=== PATIENT | male | born 1975 | race Caucasian/White ===

== ENCOUNTER 2018-05-26 13:26 | Emergency (ER) | payer BC ==
[~2018-05-26] VITALS: Ht 180.3 cm; Wt 122.7 kg
[~2018-05-26 13:26] MED LIST: ALLERGY INJECTIONS INJ; PERCOCET 10/3251 TA1 PO; PRILOSEC20 MG PO; SINGULAIR10 MG PO
[2018-05-26 13:37] VITALS: Ht 180.3 cm; Wt 122.7 kg
[2018-05-26] MEDS ORDERED: CLARITIN 10 MG10 MG PO (13:41)
[2018-05-26] MEDS ORDERED: PRISTIQ50 MG PO (13:42)
[2018-05-26 14:24] LABS: ALBUMIN 3.4 g/dL (3.4-5.0); ANION GAP 10.4 mmol/L (8-16); BILIRUBIN - TOTAL 0.4 mg/dL (0.2-1.3); CALCIUM 8.7 mg/dL (8.5-10.1); CARBON DIOXIDE 26.3 mmol/L (21.0-32.0); CREATININE - SERUM 1.4 mg/dL (0.6-1.3); POTASSIUM - SERUM 3.7 mmol/L (3.5-5.1); PROTEIN - SERUM 6.3 g/dL (6.4-8.2)
[2018-05-26 14:42] LABS: HEMATOCRIT 39.7 % (42.0-54.0); HEMOGLOBIN 13.9 g/dL (13.5-17.5); LYMPHOCYTES 17.1 % (15-50); MCH 31.3 pg (26.0-34.0); MCV 89.4 fL (80.0-100.0); MEAN PLATELET VOLUME 9.9 fL (7.4-10.4); NEUTROPHILS 74.6 % (40-80); PLATELET COUNT 181 10x3/uL (130-400); RBC 4.44 10x6/uL (4.20-6.10); RDW 12.4 % (11.5-14.5); WBC 7.7 10x3/uL (4.8-10.8)
[2018-05-26] MEDS ORDERED: FLOMAX0.4 MG PO (15:46)
[2018-05-26] MEDS ORDERED: HYDROCODONE-APA1 TAB PO (15:46)
[2018-05-26] MEDS ORDERED: LEVAQUIN750 MG PO (15:47)
[2018-05-26 15:54] LABS: APPEARANCE HAZY (CLEAR); BILIRUBIN NEGATIVE (NEGATIVE); COLOR DK YELLOW (YELLOW); GLUCOSE NEGATIVE (NEGATIVE); KETONE NEGATIVE (NEGATIVE); NITRITE NEGATIVE (NEGATIVE); PROTEIN TRACE mg/dL (NEGATIVE); UROBILINOGEN NORMAL (NORMAL)
[2018-05-26 16:00] LABS: BACTERIA FEW /hpf (NONE SEEN); EPITHELIAL CELLS OCC /hpf (0-5); MUCUS <1+ /lpf (NONE SEEN); RED CELLS - URINE RARE /hpf (0-5); SPERMATOZOA 0-5 /hpf (NONE SEEN); WHITE CELLS - URINE OCC /hpf (0-5)
[2018-05-26 16:01] LABS: AMORPHOUS SEDIMENT <1+ /lpf (NONE SEEN); CALCIUM OXALATE CRYSTALS 0-5 /hpf (NONE SEEN)
[2018-05-26 17:44] VITALS: BP 117/80
== END 2018-05-26 17:47 | disposition home or self-care (01) ==
LOC: D.ER 13:26
PROVIDERS: Emergency Medicine
DX: N20.1 Calculus of ureter (principal); N23 Unspecified renal colic; R31.9 Hematuria, unspecified; R11.2 Nausea with vomiting, unspecified; F17.200 Nicotine dependence, unspecified, uncomplicated

== ENCOUNTER 2019-03-17 12:15 | Outpatient (CLI) | payer BC ==
[~2019-03-17] VITALS: Ht 180.3 cm; Wt 120.5 kg
--- NOTE | ~2019-03-17 | HEMODYNAMI ---
PATIENT:OSWALDO ECHOLS JR MEDICAL RECORD: [id number] : 75 LOCATION:[facility] ADMISSION DATE: 03/17/19 Generatedon:03/17/201915:02 Patient name: OSWALDO ECHOLS Patient #: [id number] SSN: : [id number] Date of study: 03/17/2019 Page: Of Hemodynamic Procedure Report Patient Data Patient Demographics Procedure consent was obtained First Name: OSWALDO Gender: Male Last Name: ONESIMO Suffix: [facility] Initial: BRENDEN : 1975 Patient #: [id number] Age: 43 year(s) Race: Unknown Additional ID: [id number] Contact details [address]: [address] [place] [address] State: [place] City: [place] Zip code: [address] Admission Admission Data Admission Date: 03/17/2019 Admission Time: 12:15 Height (in.): 71 BSA: 2.38 (m2) Height (cm.): 180.34 BMI: 37.04 (kg/m2) Weight (lbs.): 265.55 Weight (kg.): 120.45 Lab Results Lab Result Date: 03/17/2019 Lab Result Time: 0:00 Biochemistry Name Units Result Min Max BUN mg/dl 13 --(--*-)-- 7 18 Creatinine mg/dl 1 --(--*-)-- 0.6 1.3 CBC Name Units Result Min Max Hemoglobin g/dl 15.3 --(-*--)-- 13.5 17.5 Procedure Procedure Types Cath Procedure Diagnostic Procedure LHC LHC w/Coronaries Procedure Description Procedure Date Procedure Date: 03/17/2019 Procedure Start Time: 14:50 Procedure End Time: 15:01 Procedure Staff Name Function Terrence Rawls MD Performing Physician Veronica Fernandez RT Monitor Aaliyah Stoll RN Nurse Tashia Velazquez RT Scrub Procedure Data Cath Procedure Fluoroscopy Diagnostic fluoroscopy Total fluoroscopy Time: 3.2 time: 3.2 min min Contrast Material Contrast Material Type Amount (ml) Isovue 370 37 Entry Location Entry Primary Successful Side Size Upsize Upsize Entry Closure Fernandez ccessful Closure Location (Fr) 1 (Fr) 2 (Fr) Remarks Device Remarks Radial Right 6 Fr Mechanical artery Short Compression Estimated blood loss: 5 ml Diagnostic catheters Device Type Used For End Catheter Placement DIAGNOSTIC Anthony 110cm 5 Multi-vessel Fr catheter ([id number]) Angiography DIAGNOSTIC Pigtail 5Fr LV Angiography catheter ([id number]) Procedure Complications No complications Procedure Medications Medication Administration Route Dosage 0.9% NaCl I.V. 100 ml/hr Oxygen etCO2 Nasal cannula 2 l/min Lidocaine 2% added to field 20 Heparin Flush Bag added to field 2 bags (1000units/500ml NS) Radial Cocktail added to field 1 syringe (Verapamil 2mg/Nitro 400mcg/Heparin 1500units) Versed I.V. 2 mg Fentanyl I.V. 50 mcg Versed I.V. 2 mg Fentanyl I.V. 50 mcg Hemodynamics Rest BSA: 2.38 (m2) HGB: 15.3 (g/dl) O2 Consumption: Estimated: 285.91 (ml/min) O2 Co nsumption indexed: Estimated:120.13 (ml/min/m) Heart Rate: 67 (bpm) Pressure Samples Time Site Value (mmHg) Purpose Heart Use Rate(bpm) 14:53 LV 107/12,13 Snapshot 75 14:53 AO 123/88(106) Pullback 71 14:53 LV 114/8,11 Pullback 71 14:57 LV 92/4,9 Snapshot 65 Gradients Valve Time Site 1 Site 2 Mean SEP/DFP Peak To Heart Use (mmHg) (sec/min) Peak Rate (mmHg) (bpm) Aortic 14:53 LV AO 0 71 114/8,11 123/88(106) Calculations Valve P-P Mean Valve Index Valve Source Name Gradient Area Flow (cm2) Aortic 0 0 Snapshots Pre Cath Intra NCS Post Cath Vital Signs Time Heart Resp SPO2 etCO2 NIBP (mmHg) Rhythm Pain Sedation Rate (ipm) (%) (mmHg) Status Level (bpm) 14:31:55 69 17 97 36.9 169/110(132) NSR 0 (11) 10(A) , No pain 14:36:29 72 18 98 39.8 160/116(134) NSR 0 (11) 10(A) , No pain 14:41:00 69 16 98 42.1 161/109(125) NSR 0 (11) 10(A) , No pain 14:45:24 67 16 97 39.8 157/100(125) NSR 0 (11) 9(A) , No pain 14:49:40 70 13 98 46.7 149/103(123) NSR 0 (11) 9(A) , No pain 14:54:04 70 13 97 40.6 150/86(105) NSR 0 (11) 9(A) , No pain 14:58:30 65 14 98 45.1 140/81(111) NSR 0 (11) 10(A) , No pain Medications Time Medication Route Dose Verified Delivered Reason Notes E ffectiveness by by 14:33:02 0.9% NaCl I.V. 100 Terrence Videsa used for ml/hr [facility] procedure MD MINA 14:33:09 Oxygen etCO2 2 l/min Terrence Videsa used for Nasal [facility] procedure cannula MD MINA 14:33:15 Lidocaine 2% added 20ml Terrence Ocampo for local to vial [facility] anesthetic field MD PHELPS 14:33:20 Heparin Flush added 2 bags Terrence Ocampo used for Bag to [facility] procedure (1000units/500ml field MD PHELPS NS) 14:33:26 Radial Cocktail added 1 Terrence Ocampo used for (Verapamil to syringe [facility] procedure 2mg/Nitro field MD PHELPS 400mcg/Heparin 1500units) 14:39:13 Versed I.V. 2 mg Terrence Aaliyah for SinaiT[facility] Stoll sedation MD MINA 14:39:19 Fentanyl I.V. 50 mcg Terrence Charlesyla for SinaiT[facility] Stoll sedation MD MINA 14:44:05 Versed I.V. 2 mg Terrence Aaliyah for SinaiTai Stoll sedation MD MINA 14:44:15 Fentanyl I.V. 50 mcg Terrence Videsa for SinaiTai Stoll sedation MD MINAsoftware build engineer Log Time Note 13:56:06 Patient Height : 71 inches 13:56:12 Patient Weight : 265.55 lbs 13:56:35 Lab Result : Hemoglobin 15.3 g/dl 13:56:35 Lab Result : Creatinine 1 mg/dl 13:56:35 Lab Result : BUN 13 mg/dl 13:57:04 Diagnostic Cath status Elective 13:57:06 Veronica Fernandez RT(R) sent for patient. Start room use. 13:57:08 Time tracking: Regular hours (M-F 7:00 - 5:00) 13:57:12 Plan of Care:Hemodynamics will remain stable., Cardiac rhythm will remain stable., Comfort level will be maintained., Respiratory function will remain adequate., Patient/ family verbilizes understanding of procedure., Procedure tolerated without complication., Recovers from procedure without complications.. 14:25:03 Patient received from Pre/Post Procedure Room to CCL 2 Alert and oriented. Tansferred to table in Supine position. 14:25:05 Warm blankets applied, and klaudia hugger turned on for patient comfort. 14:25:05 Correct patient and procedure confirmed by team. 14:25:06 Signed procedure consent form obtained from patient. 14:25:07 ECG and BP/O2 sat monitors applied to patient. 14:30:31 Vital chart was started 14:33:02 0.9% NaCl 100 ml/hr I.V. was administered by Aaliyah Stoll RN; used for procedure; 14:33:09 Oxygen 2 l/min etCO2 Nasal cannula was administered by Aaliyah Stoll RN; used for procedure; 14:33:15 Lidocaine 2% 20ml vial added to field was administered by Terrence Rawls MD; for local anesthetic; 14:33:20 Heparin Flush Bag (1000units/500ml NS) 2 bags added to field was administered by Terrence Rawls MD; used for procedure; 14:33:24 Baseline sample Acquired. 14:33:26 Radial Cocktail (Verapamil 2mg/Nitro 400mcg/Heparin 1500units) 1 syringe added to field was administered by Terrence Rawls MD; used for procedure; 14:33:28 Rhythm: sinus rhythm 14:33:30 Full Disclosure recording started 14:33:33 H&P Date Dictated: 03/17/2019 Within 30 days and on chart., H&P Addendum completed by physician on day of procedure. (MUST COMPLETE FOR ALL OUTPATIENTS). 14:33:34 Pre-procedure instructions explained to patient. 14:33:35 Pre-op teaching completed and patient verbalized understanding. 14:33:36 Family in waiting room. 14:33:38 Patient NPO since Midnight. 14:33:39 Is the patient allergic to Iodine/contrast media? No. 14:33:40 Was the patient premedicated? No 14:33:41 Is patient on blood thinner?No 14:33:42 Patient diabetic? No. 14:33:45 Previous problem with sedation/anesthesia? No ? 14:33:47 Snore? Yes 14:33:47 Sleep apnea? No 14:33:48 Deviated septum? No 14:33:49 Opens mouth fully? Yes 14:33:51 Sticks out tongue? Yes 14:33:57 Airway obstruction? Yes asthma 14:34:00 Dentures? No ? 14:34:03 Pre procedure: right dorsailis pedis pulse 2+ Normal; easily identifiable; not easily obliterated 14:34:06 Pre procedure: left dorsailis pedis pulse 2+ Normal; easily identifiable; not easily obliterated 14:34:07 Patient pain scale 0/10 ?. 14:34:15 IV patent on arrival in left forearm with 0.9% NaCl at O. 14:34:17 Lab results completed and on chart. 14:34:22 Right Radial & Right Groin area was prepped with chlora-prep and draped in sterile fashion 14:34:23 Alarms reviewed by R. N. 14:34:23 Sharps counted by scrub and verified by R.N. 14:38:06 Physician arrived 14:38:06 --------ALL STOP TIME OUT------ 14:38:06 Final Timeout: patient, procedure, and site verified with staff and physician. All members of the team are in agreement. 14:38:09 Right Radial & Right Groin site verified by team. 14:38:12 Maximum allowable Isovue 300 dose 300ml. Physician notified. (300ml for normal creatinines. For patients with creatinine of 1.7 or higher multiply weight(kg) x 5 divided by creatinine.) 14:38:16 Fire Safety Assessment: A--An alcohol-based skin anteseptic being used preoperatively., C--Open oxygen or nitrous oxide is being used., D--An ESU, laser, or fiber-optic light is being used. 14:38:19 Physical assessment completed. ASA score P 2 - A patient with mild systemic disease as per Terrence Rawls MD. 14:38:22 Sedation plan: IV Moderate Sedation Medication:Versed, Fentanyl 14:38:28 Use device set Radial Dx or PCI 14:38:29 ACIST Syringe (12119) opened to sterile field. 14:38:29 Medline Cath Pack ([id number]) opened to sterile field. 14:38:29 Bag Decanter (2002S) opened to sterile field. 14:38:30 DIAGNOSTIC WIRE .035 260cm J wire (120011) opened to sterile field. 14:38:30 ACIST Hand Control (40347) opened to sterile field. 14:38:30 ACIST Manifold (54830) opened to sterile field. 14:38:31 Tegaderm 4 x 4 (1626W) opened to sterile field. 14:38:31 MBrace Wrist Support ([id number]) opened to sterile field. 14:38:32 SHEATH 6FR Slender (51-6453) opened to sterile field. 14:39:13 Versed 2 mg I.V. was administered by Aaliyah Stoll RN; for sedation; 14:39:19 Fentanyl 50 mcg I.V. was administered by Aaliyah Stoll RN; for sedation; 14:44:05 Versed 2 mg I.V. was administered by Aaliyah Stoll RN; for sedation; 14:44:15 Fentanyl 50 mcg I.V. was administered by Aaliyah Stoll RN; for sedation; 14:46:46 Zero performed for pressure channel P1 14:49:59 Procedure started. 14:50:11 Local anesthetic to right radial artery with Lidocaine 2% by Terrence Rawls MD.INITIAL ACCESS ONLY 14:50:20 A 6 Fr Short sheath was inserted into the Right Radial artery 14:51:46 A DIAGNOSTIC Anthony 110cm 5 Fr catheter (747204) was advanced over the wire and used for Multi-vessel Angiography. 14:53:10 LV hemodynamics recorded. 14:53:12 LV gram done using MAORI 14:53:15 Injector settings: Ml/sec: 5, Volume: 15, 14:53:56 LCA angiography performed. 14:53:59 Injector settings: Ml/sec: 3, Volume: 6\, 14:55:21 RCA angiography performed. 14:55:23 Injector settings: Ml/sec: 3, Volume: 6, 14:55:26 Catheter removed. 14:55:38 A DIAGNOSTIC Pigtail 5Fr catheter ([id number]) was advanced over the wire and used for LV Angiography. 14:57:50 EF : 40 % 14:57:54 Catheter removed. 14:58:50 TR BAND Large ([id number]) opened to sterile field. 14:59:05 Sheath removed intact; hemostasis achieved with Mechanical Compression to the Right Radial artery. 14:59:07 Procedure ended.(Physican Out) 15:00:26 Fluoroscopy time 03.20 minutes. 15:00:40 Contrast amount:Isovue 370 37ml. 15:00:41 Sharps counted by scrub and verified by R.N. 15:00:48 TR band inflated with 10cc of air. 15:00:50 Insertion/operative site no bleeding no hematoma. 15:00:54 Post right radial artery:stable 15:01:14 Post Procedure Pulses reassessed and unchanged 15:01:16 Post procedure rhythm: unchanged. 15:01:19 Estimated blood loss: 5 ml 15:01:20 Post procedure instruction explained to patient.Patient verbalizes understanding. 15:01:20 Patient needs reinforcement of post procedure teaching. 15:01:26 Procedure and supply charges have been captured, reviewed, submitted and are correct. 15:01:31 Procedure Complication : No complications 15:01:34 Vital chart was stopped 15:01:34 See physician's report for complete and final results. 15:01:37 Report given to Pre/Post Procedure Room. 15:01:40 Patient transfered to Pre/Post Procedure Room with Stretcher. 15:01:43 Procedure ended. 15:01:43 Full Disclosure recording stopped 15:01:52 End room use (Document Last) Device Usage Item Name Manufacture Quantity Catalog Hospital Part Current Minimal Lot# / Number Charge Number Stock Stock Serial# Code ACIST Acist 1 56381 932190 162043 627587 20 Syringe Latest Medical (39993) Systems Inc Medline Medline 1 [id number] 268949 79683 426193 5 Cath Pack ([id number]) Bag Microtek 1 399298 89798 249911 5 Decanter Medical Inc. () DIAGNOSTIC [facility] [place] 1 120823 304151 716666 192941 30 WIRE .035 260cm J wire (326734) ACIST Hand Acist 1 08895 093317 603198 949420 5 Control Medical (44220) Systems Inc ACIST Acist 1 30246 124958 337028 243991 5 Manifold Medical (93864) Systems Inc Tegaderm 4 3M 1 1626W 147858 197207 488446 5 x 4 (1626W) MBrace Advanced 1 140-0250-00 358412 14379 280415 5 Wrist Vascular Support Dynamics ([id number]) SHEATH 6FR Terumo 1 [id number] 828740 730080 332758 5 Slender (80-1060) DIAGNOSTIC Terumo 1 40-5013 317519 257274 639548 5 Anthony 110cm 5 Fr catheter (854813) DIAGNOSTIC Cardinal 1 [id number] 553174 573763 544589 5 Pigtail 5Fr Health catheter (039873M) TR BAND Terumo 1 [id number] 015369 068760 809955 40 Large ([id number]) Signature Audit [place] Stage Time Signature Unsigned Intra-Procedure 03/17/2019 Veronica Fernandez 3:02:19 PM RT(R) Signatures Monitor : Veronica Fernandez RT Signature : Date : Time : [facility] [address] [place] [address]
[~2019-03-17 12:15] MED LIST changes: +CLARITIN 10 MG10 MG PO; +FLOMAX0.4 MG PO; +HYDROCODONE-APA1 TAB PO; +LEVAQUIN750 MG PO; +PRISTIQ50 MG PO
[2019-03-17] MEDS ORDERED: SINGULAIR10 MG PO (12:27)
[2019-03-17] MEDS ORDERED: PRISTIQ100 MG PO (12:28)
[2019-03-17] MEDS ORDERED: ZIAC 10-6.25 MG1 TAB PO (12:28)
[2019-03-17 12:40] VITALS: BP 145/97; Ht 180.3 cm; Wt 120.5 kg
[2019-03-17 13:03] LABS: BASOPHILS 0.2 % (0-2); EOSINOPHILS 2.5 % (0-7); HEMATOCRIT 43.9 % (42.0-54.0); HEMOGLOBIN 15.3 g/dL (13.5-17.5); IMMATURE GRANULOCYTES 0.4 % (0-5); LYMPHOCYTES 20.4 % (15-50); MCH 31.6 pg (26.0-34.0); MCHC 34.9 g/dL (31.0-37.0); MCV 90.7 fL (80.0-100.0); MEAN PLATELET VOLUME 10.3 fL (7.4-10.4); MONOCYTES 5.6 % (2-11); NEUTROPHILS 70.9 % (40-80); PLATELET COUNT 182 10x3/uL (130-400); RBC 4.84 10x6/uL (4.20-6.10); RDW 12.9 % (11.5-14.5)
[2019-03-17 13:10] LABS: CALC OSMOLALITY 287 mosm/kg (275-300); CALCIUM 8.9 mg/dL (8.5-10.1); CARBON DIOXIDE 27.7 mmol/L (21.0-32.0); CHLORIDE - SERUM 107 mmol/L (98-107); GLUCOSE 119 mg/dL (74-106); SODIUM 144 mmol/L (136-145); UREA NITROGEN 13 mg/dL (7-18); eGFR NON AFRICAN AMERICAN 87 mL/min (90-120)
[2019-03-17] MEDS ORDERED: DIOVAN160 MG PO (15:26)
--- NOTE | 2019-03-17 15:35 | NUR ---
TR BAND IS CDI, NO BLEEDING OR HEMATOMA AT CATH SITE. FINGERS WARM AND CAP REFILL IS BRISK. VSS, RESP WITH EASE. PT SLEEPING INTERMITTENTLY. GIRLFRIEND AT BEDSIDE.
--- NOTE | 2019-03-17 16:05 | NUR ---
PT SLEEPING INTERMITTENTLY, TR BAND IS CDI, FINGERS WARM AND CAP REFILL IS BRISK. VSS, GIRLFRIEND AT BEDSIDE.
--- NOTE | 2019-03-17 16:10 | NUR ---
4 CC OF AIR WEANED FROM TR BAND WITH NO BLEEDING NOTED. PT ALERT, SANDWICH AND PO FLUIDS SERVED. VSS, PT DENIES ANY C/O.
--- NOTE | 2019-03-17 16:25 | NUR ---
4 CC OF AIR WEANED FROM TR BAND WITH NO BLEEDING NOTED. FINGERS WARM AND CAP REFILL IS BRISK.
--- NOTE | 2019-03-17 16:45 | NUR ---
ALL REMAINING AIR WEANED FROM TR BAND WITH NO BLEEDING NOTED. IV DC'D WITH CATH INTACT AND PT IS DRESSING FOR DC WITH ASSIST.
--- NOTE | 2019-03-17 17:05 | NUR ---
2X2 AND TEGADERM CDI TO WRIST, NO BLEEDING OR HEMATOMA NOTED. FINGERS WARM AND CAP REFILL IS BRISK. RADIAL PULSE PALPABLE. PT DENIES ANY NV DEFICIT TO HAND. DC INSTRUCTIONS HAVE BEEN REVIEWED WITH PT AND GIRLFRIEND WHO VERBALIZE UNDERSTANDING. [facility] CALLED TO PT'S PHARMACY, MED COUNSELOR SHEET TO PT. PT ESCORTED TO PRIVATE AUTO VIA WC BY NURSE WITH GIRLFRIEND DRIVING HIM HOME.
--- NOTE | 2019-03-22 13:26 | OP ---
PATIENT NAME: OSWALDO ECHOLS JR MEDICAL RECORD: [id number] :75 LOCATION:[facility] ADMISSION DATE: SURGEON: JOSEPHINE STERLING MD DATE OF OPERATION: 03/17/2019 PROCEDURE: Left heart catheterization, selective coronary angiography, right radial approach. CATHETERS: Kennedy catheter and radial sheath. The procedure was well tolerated. The patient was returned to [place]. Sheath was removed. TR band was placed. FINDINGS: Left ventriculography in 30-degree PAZ view shows mild global hypo. Overall LV function reduced at 40% to 45%. CORONARY ANATOMY: LEFT MAIN: Left main has somewhat of a shotgun takeoff with separate ostia for the LAD and the circumflex. LAD: LAD is free of disease. CIRCUMFLEX: Free of disease in the marginal system. RIGHT CORONARY ARTERY: Dominant artery, gives rise to the PDA, free of disease. IMPRESSION: Mildly decreased LV systolic function. Normal coronary anatomy, consistent with mild hypertensive cardiomyopathy. TRANSINT:[id number] Voice Confirmation ID: [id number] DOCUMENT ID: [id number] JOSEPHINE STERLING MD at 1326 CC: [id number] DICTATION DATE: 03/17/19 1505 CARPENTER REPAIR: 03/17/198 DEP CLI 03/17/19 [facility] [address] [place] [address]
== END 2019-03-17 17:05 | disposition home or self-care (01) ==
LOC: D.CATH 12:15
PROVIDERS: ATTEND Internal Medicine Interventional Cardiology
DX: I20.9 Angina pectoris, unspecified (principal); Z01.812 Encounter for preprocedural laboratory examination